=== PATIENT | female | born 1950 | race Caucasian/White ===

== ENCOUNTER 2017-12-06 15:02 | Emergency (ER) | payer MEDICARE, OTHER ==
[~2017-12-06] VITALS: Ht 165.1 cm; Wt 74.0 kg
[~2017-12-06 15:02] MED LIST: ATOR10TA PO; CALC1TAB PO; LISI-600 PO; PREN1TAB79 PO
[2017-12-06 15:10] VITALS: BP 142/69
[2017-12-06] MEDS ORDERED: proparacaine 0.5% ophthalmic drops 15ml RIGHTEYE ONE (16:15)
[2017-12-06] MEDS ORDERED: PROPARACAINE/FLUORESCEIN ophthalmic drops 5ml bottle RIGHTEYE ONE (16:35)
[2017-12-06] MEDS ORDERED: CIPR2.5D18 RIGHTEYE (16:57)
== END 2017-12-06 17:04 | disposition home or self-care (01) ==
LOC: ER 15:02
DX: H57.11 Ocular pain, right eye (principal); H53.141 Visual discomfort, right eye; I10 Essential (primary) hypertension; Z85.3 Personal history of malignant neoplasm of breast; Z98.890 Other specified postprocedural states; Z91.041 Radiographic dye allergy status; Z90.89 Acquired absence of other organs; Z79.899 Other long term (current) drug therapy
CPT/HCPCS: 65222; 99283; 99284

== ENCOUNTER 2018-03-24 14:16 | Inpatient (IN) | payer MEDICARE, OTHER ==
[~2018-03-24] VITALS: Ht 165.1 cm; Wt 165.0 kg
[2018-03-24] MEDS ORDERED: acetaminophen 325mg tablet PO PRN ×2 (14:25→15:45)
[2018-03-24] MEDS ORDERED: nitroGLYCERIN 0.4mg SUBLingual tab SL PRN ×2 (14:25→15:45)
[2018-03-24 14:43] LABS: BASOPHILS % (AUTO) 0.2 % (0-1); EOSINOPHILS # (AUTO) 0.2 X10'3 (0-0.9); EOSINOPHILS % (AUTO) 2.5 % (0-6); HEMOGLOBIN 12.5 g/dl (12.0-16.0); LYMPHOCYTES % (AUTO) 23.1 % (21-51); MEAN CORPUSCULAR HEMOGLOBIN 27.9 PG (27.0-31.0); MEAN CORPUSCULAR HGB CONC 32.9 % (33.0-36.5); MEAN CORPUSCULAR VOLUME 84.8 FL (78-98); MEAN PLATELET VOLUME 8.1 FL (7.4-10.4); MONOCYTES # (AUTO) 0.4 X10'3 (0-0.9); MONOCYTES % (AUTO) 4.2 % (2-12); NEUTROPHILS # (AUTO) 6.1 X10'3 (1.8-7.7); PLATELET COUNT 198 X10'3 (140-440); RED BLOOD COUNT 4.48 X10'6 (4.20-5.60); RED CELL DISTRIBUTION WIDTH 13.9 % (11.5-14.5); WHITE BLOOD COUNT 8.7 X10'3 (4.5-11.0)
[2018-03-24 15:00] LABS: ALANINE AMINOTRANSFERASE 26 U/L (12-78); ALBUMIN 3.7 G/DL (3.4-5.0); ALKALINE PHOSPHATASE 77 IU/L (46-116); ANION GAP 10 (8-16); ASPARTATE AMINO TRANSFERASE 14 U/L (10-37); BILIRUBIN,TOTAL 0.3 MG/DL (0.1-1.0); BLOOD UREA NITROGEN 21 MG/DL (7-18); BUN/CREATININE RATIO 26.9 (6.6-38.0); CALCIUM 9.2 MG/DL (8.5-10.1); CHLORIDE 106 MMOL/L (99-107); CREATININE 0.78 MG/DL (0.40-0.90); GLUCOSE 115 MG/DL (70-104); SODIUM 143 MMOL/L (135-145); TOTAL CARBON DIOXIDE 27.4 MMOL/L (24-32); TOTAL PROTEIN 7.3 G/DL (6.4-8.2); eGFR 73 ML/MIN
[2018-03-24 15:06] LABS: MAGNESIUM 1.9 MG/DL (1.5-2.4)
[2018-03-24] MEDS ORDERED: potassium Cl 20 mEq SR tablet PO PRN ×2 (15:45)
[2018-03-24] MEDS ORDERED: metoprolol tartrate 1mg/ml inj IV PRN (15:45)
[2018-03-24] MEDS ORDERED: regadenoson 0.4mg/5ml syringe IV ONE (15:45)
[2018-03-24] MEDS ORDERED: potassium Cl 40MEQ/NS 500ml 500 ML IV PRN ×2 (15:45)
[2018-03-24] MEDS ORDERED: ondansetron/PF 4mg/2ml inj IV PRN (15:45)
[2018-03-24] MEDS ORDERED: magnesium 4gm in 100ml NS 100 ML IV PRN (15:45)
[2018-03-24] MEDS ORDERED: aminophylline 250mg/10ml inj. IV PRN (15:45)
[2018-03-24] MEDS ORDERED: mag hydrox/Alum hydrox/simeth 30ml oral suspension PO PRN (15:45)
[2018-03-24] MEDS ORDERED: magnesium hydroxide 30ml (MOM) UD suspension PO PRN (15:45)
[2018-03-24] MEDS: normal saline 1000ml 1,000 ML IV SCH (16:15)
[2018-03-24] MEDS ORDERED: lisinopril 20mg tablet PO SCH (21:00)
[2018-03-25] VITALS (14 sets, daily range): BP systolic 128–163; BP diastolic 66–100
[2018-03-25] MEDS: normal saline 1000ml 1,000 ML IV SCH ×2 (01:41→11:41)
[2018-03-25 05:06] LABS: BASOPHILS # (AUTO) 0.1 X10'3 (0-0.2); BASOPHILS % (AUTO) 0.7 % (0-1); EOSINOPHILS # (AUTO) 0.2 X10'3 (0-0.9); EOSINOPHILS % (AUTO) 3.1 % (0-6); HEMATOCRIT 39.6 % (35.0-45.0); LYMPHOCYTES % (AUTO) 38.6 % (21-51); MEAN CORPUSCULAR HEMOGLOBIN 27.7 PG (27.0-31.0); MEAN CORPUSCULAR HGB CONC 32.8 % (33.0-36.5); MEAN CORPUSCULAR VOLUME 84.6 FL (78-98); MEAN PLATELET VOLUME 8.6 FL (7.4-10.4); MONOCYTES # (AUTO) 0.4 X10'3 (0-0.9); MONOCYTES % (AUTO) 5.2 % (2-12); NEUTROPHILS % (AUTO) 52.4 % (42-75); PLATELET COUNT 194 X10'3 (140-440); RED BLOOD COUNT 4.69 X10'6 (4.20-5.60); RED CELL DISTRIBUTION WIDTH 13.8 % (11.5-14.5); WHITE BLOOD COUNT 7.7 X10'3 (4.5-11.0)
[2018-03-25 05:25] LABS: ALANINE AMINOTRANSFERASE 25 U/L (12-78); ALBUMIN 3.8 G/DL (3.4-5.0); ALKALINE PHOSPHATASE 78 IU/L (46-116); ANION GAP 9 (8-16); ASPARTATE AMINO TRANSFERASE 14 U/L (10-37); BILIRUBIN,TOTAL 0.5 MG/DL (0.1-1.0); BLOOD UREA NITROGEN 20 MG/DL (7-18); BUN/CREATININE RATIO 29.9 (6.6-38.0); CALCIUM 9.3 MG/DL (8.5-10.1); CHLORIDE 107 MMOL/L (99-107); CREATININE 0.67 MG/DL (0.40-0.90); GLUCOSE 127 MG/DL (70-104); POTASSIUM 3.9 MMOL/L (3.5-5.1); SODIUM 142 MMOL/L (135-145); TOTAL CARBON DIOXIDE 26.1 MMOL/L (24-32); TOTAL PROTEIN 7.5 G/DL (6.4-8.2); eGFR 87 ML/MIN
[2018-03-25 05:29] LABS: CHOL/HDL RATIO 3.8 (0.00-4.99); CHOLESTEROL 224 MG/DL (0-200); HDL CHOLESTEROL 59 MG/DL (35-60); LDL CHOLESTEROL 141 MG/DL (50-100); MAGNESIUM 1.9 MG/DL (1.5-2.4); TRIGLYCERIDES 148 MG/DL (20-135)
[2018-03-25] MEDS ORDERED: K and/or MAG REPLACEMENT MC SCH (08:00)
[2018-03-25] MEDS ORDERED: enoxaparin 40mg/0.4ml syringe SQ SCH (08:00)
[2018-03-25] MEDS ORDERED: regadenoson 0.4mg/5ml syringe IV ONE (10:03)
[2018-03-25] MEDS ORDERED: aminophylline inj. 10 ML IV ONE (10:03)
[2018-03-25] MEDS ORDERED: ASPI81TA52 PO (15:08)
[2018-03-25] MEDS ORDERED: ATOR10TA87 PO (15:08)
[2018-03-25] MEDS ORDERED: PANT-47 PO (15:10)
== END 2018-03-25 15:10 | disposition home or self-care (01) | DRG 313 ==
LOC: ER 14:17 → ED HOLD 15:41 → SUR 3N 03-25 03:20
PROVIDERS: ADMIT Family Medicine; ATTEND Internal Medicine
PROC: 4A02XM4 Measurement of Cardiac Total Activity, External Approach (ICD-10-PCS; principal; 2018-03-25)
PROC: 3E033HZ Introduction of Radioactive Substance into Peripheral Vein, Percutaneous Approach (ICD-10-PCS; 2018-03-25)
DX: R07.89 Other chest pain (principal); F43.9 Reaction to severe stress, unspecified; F41.9 Anxiety disorder, unspecified; E78.5 Hyperlipidemia, unspecified; I10 Essential (primary) hypertension; Z90.3 Acquired absence of stomach [part of]; Z91.041 Radiographic dye allergy status; Z79.899 Other long term (current) drug therapy; Z79.82 Long term (current) use of aspirin; Z86.73 Personal history of transient ischemic attack (TIA), and cerebral infarction without residual deficits; Z87.11 Personal history of peptic ulcer disease; Z80.0 Family history of malignant neoplasm of digestive organs; Z80.1 Family history of malignant neoplasm of trachea, bronchus and lung; Z80.8 Family history of malignant neoplasm of other organs or systems; Z83.3 Family history of diabetes mellitus
CPT/HCPCS: 36415; 71045; 78452; 80053; 80061; 83735; 83880; 84484; 85025; 87070; 93005; 93017; 93306; 99285; A9500; G0378; J0280; J1650; J2405; J7030

== ENCOUNTER 2019-03-24 08:35 | Emergency (ER) | payer BC, MEDICARE, OTHER ==
[~2019-03-24] VITALS: Ht 162.6 cm; Wt 80.0 kg
[~2019-03-24 08:35] MED LIST changes: -ATOR10TA PO; -CALC1TAB PO; +PANT-47 PO; -PREN1TAB79 PO
[2019-03-24 11:16] VITALS: BP 139/89
== END 2019-03-24 11:17 | disposition home or self-care (01) ==
LOC: ER 08:36
DX: M79.671 Pain in right foot (principal); R59.0 Localized enlarged lymph nodes; I10 Essential (primary) hypertension; Z98.890 Other specified postprocedural states; Z85.3 Personal history of malignant neoplasm of breast; Z79.899 Other long term (current) drug therapy
CPT/HCPCS: 93926; 99284